=== PATIENT | male | born 1955 | race Caucasian/White ===

== ENCOUNTER 2025-05-22 12:44 | Emergency (ER) | payer OTHER ==
[~2025-05-22] VITALS: Ht 165.1 cm; Wt 48.0 kg
[2025-05-22 12:48] VITALS: O2SAT 99
[2025-05-22 13:37] LABS: BASOPHILS % 0.3 % (0.0-2.0); EOSINOPHILS % 0.2 % (0.0-5.0); HEMATOCRIT. 42.3 % (42.0-52.0); HEMOGLOBIN. 12.5 g/dL (14.0-18.0); LYMPHOCYTES % 21.5 % (20.0-50.0); MEAN PLATELET VOLUME 6.6 fl (7.4-10.4); MONOCYTES % 5.1 % (2.0-8.0); NEUTROPHILS % 72.9 % (40.0-76.0); PLATELET 255 x1000/uL (130-400); RED BLOOD CELL COUNT 5.18 mill/uL (4.7-6.1); RED CELL DISTRIBUTION WIDTH 22.5 % (11.6-14.6)
[2025-05-22 13:38] LABS: ADD RBC MORPHOLOGY YES
[2025-05-22] MEDS: SODIUM CHLORIDE 0.9% 1,000 ML IV ONE ×2 (13:38→16:53)
[2025-05-22 13:46] LABS: INR 1.4
[2025-05-22 14:03] LABS: CREATININE 1.0 mg/dL (0.6-1.3)
[2025-05-22 14:04] LABS: TROPONIN I HIGH SENSITIVITY < 4 ng/L (3.0-53); UREA NITROGEN BLOOD 36 mg/dL (9-23)
[2025-05-22 14:05] LABS: ASPARTATE AMINOTRANSFERASE 12 IU/L (<34); PLATELET ESTIMATE NORMAL
[2025-05-22 14:06] LABS: BILIRUBIN DIRECT 0.4 mg/dL (<=3.0); BILIRUBIN TOTAL 0.7 mg/dL (0.1-1.0); PROTEIN TOTAL 6.1 g/dL (6.0-8.3)
[2025-05-22] MEDS: IOHEXOL-350 100 ML BOTTLE ONE (15:03)
[2025-05-22] MEDS: AMOXICILLIN/POTASSIUM CLAVULANATE 875/125MG TAB PO SCH ×2 (18:00→19:16)
[2025-05-22] MEDS: DOXYCYCLINE HYCLATE 100MG CAPSULE PO SCH ×2 (18:00→19:15)
[2025-05-22] MEDS ORDERED: DOXY100C5 MT (18:07)
[2025-05-22] MEDS ORDERED: AMOX1TAB16 MT (18:07)
[2025-05-22 21:30] VITALS: BP 93/42; PULSE 68; RESP 16; TEMP 36.5; O2SAT 99
== END 2025-05-22 21:42 | disposition home or self-care (01) ==
LOC: ER 12:44
DX: C64.9 Malignant neoplasm of unspecified kidney, except renal pelvis (principal); E11.9 Type 2 diabetes mellitus without complications; F03.90 Unspecified dementia, unspecified severity, without behavioral disturbance, psychotic disturbance, mood disturbance, and anxiety; E78.5 Hyperlipidemia, unspecified; Z79.899 Other long term (current) drug therapy
CPT/HCPCS: 99291; 74174; 96361; 96360; 80076; 80048; 83690; 85025; 85610; 84484; 36415; 71045; 93005; Q9967; J7030; A4606